=== PATIENT | male | born 2000 | race Two or more races ===

== ENCOUNTER → 2025-03-31 | Outpatient (CLI) | payer BC, SELFPAY ==
--- NOTE | 2025-03-31 13:15 | XR_ITS ---
EXAMINATION: Ankle, right 3 views. Technique: Ankle AP, oblique, lateral 3 views Date and time of exam: March 31, 2025, 1338 hours INDICATIONS: Injury to the ankle 5 days ago, ankle pain. FINDINGS: Lateral malleolar soft tissue swelling No ankle fracture or dislocation IMPRESSION: No ankle fracture or dislocation
== END | disposition home or self-care (01) ==
PROVIDERS: PCP Student in an Organized Health Care Education/Training Program; Referring Provider Student in an Organized Health Care Education/Training Program; Visit Provider Student in an Organized Health Care Education/Training Program
DX: S99.911A Unspecified injury of right ankle, initial encounter (principal); X58.XXXA Exposure to other specified factors, initial encounter
CPT/HCPCS: 73610

== ENCOUNTER → 2025-04-16 | Outpatient (CLI) | payer BC, SELFPAY ==
--- NOTE | 2025-04-16 15:45 | XR_ITS ---
Examination: MRI right ankle without contrast Date and time of exam: April 16, 2025, 1802 hours INDICATIONS: Injury to the ankle 3 weeks ago, ankle pain Technique: Multiple MRI axial and sagittal sections right ankle Sagittal T2-weighted images, TR 3500, TE 118 T1 weighted transverse sections, TR 688 T8.5, T2-weighted sagittal sections T1 weighted sagittal sections TR 621, TE 30 T2 axial sections, TR 4, 190, TE 84. Findings: Severe marrow edema involving the talus, suspicious for microtrabecular fracture lines Marrow edema posterior malleolus medial malleolus distal lateral malleolus malleolus and distal fibula Achilles tendon intact Mild plantar fasciitis Anterior posterior inferior tibiofibular ligaments intact Mild sprain anterior talofibular ligament Prominent tendinitis posterior tibial flexor digitorum tendons Extensor tendons intact Mild hemorrhage anterior to the fibula, 21 x 8 mm IMPRESSION: Severe bone marrow contusion suspicious for microtrabecular lines involving the talus, medial and lateral malleolar I and posterior malleolus, recommend CT scan ankle without contrast follow-up to exclude fractures at these sites Mild sprain anterior talofibular ligament Prominent tendinitis posterior tibial flexor digitorum tendons
== END | disposition home or self-care (01) ==
LOC: SMRI 15:39
PROVIDERS: PCP Student in an Organized Health Care Education/Training Program; Referring Provider Student in an Organized Health Care Education/Training Program; Visit Provider Student in an Organized Health Care Education/Training Program
DX: S93.401D Sprain of unspecified ligament of right ankle, subsequent encounter (principal); S90.01XD Contusion of right ankle, subsequent encounter; X58.XXXD Exposure to other specified factors, subsequent encounter; M76.821 Posterior tibial tendinitis, right leg
CPT/HCPCS: 73721